=== PATIENT | female | born 1990 | race Hispanic/Latino ===

== ENCOUNTER 2017-03-03 06:10 | Emergency (ER) | payer MEDICAID ==
[2017-03-03 06:10] VITALS: BMI 38.6
[2017-03-03] MEDS ORDERED: DiphenhydrAMINE 50 mg/ml Inj ONE (06:20)
[2017-03-03] MEDS ORDERED: Sodium Chloride 0.9% 1,000 ML IV ONE ×2 (06:22→07:22)
--- NOTE | 2017-03-03 06:22 | C.PDOC ---
Addendum entered and electronically signed by Sandhya Gomez PA 03/03/17 11: 48: Addendum Addendum: 03/03/17 11:43 Pt was endorsed t o me by ELIA Dia. Pt was seen due to allergic reaction, treated with Solumedrol, Benadryl, Pepcid. During the ED evaluation, pt started to complain epigasric pain. Elia Dia order CT abd/pelvis. Pt was re-evaluated every hour, was cont c/o epigastric pain. Protonix, hydration with IVF order. Blood work review , mild leukocytosis noted, otherwise, no other acute abnormalities, electolytes LFT- WNL. UA results c/w UTI. UCx-pending. CT abd/pelvis results review at 11:43 and appears without acute apthology. Case discussed with ED attending and discharge with outpt f/u GI, Surgery recommend at this time. Results review and discused with pt. Understand and agrees with discharges. Original Note: History Of Present Illness <Karissa Ellis - Last Filed: 03/03/17 06:48> <Sandhya oGmez - Last Filed: 03/03/17 11:42> <Dia Phillip - Last Filed: 03/05/17 09:14> 26 year old female presents to the ED for evaluation of allergic reaction. She reports reaction may be from an unknown over the counter pain reliever. She states that she was having epigastric abdominal pain associated with nausea 2 days ago and took the unknown medication for that pain. The next day she developed rash and itchiness. She took a benadryl last night but rash and itching persisted over night and now she complains of pruritic lips. (Dia Phillip) <Karissa Ellis - Last Filed: 03/03/17 06:48> <Sandhya Gomez - Last Filed: 03/03/17 11:42> History Per: Patient History/Exam Limitations: no limitations Onset/Duration Of Symptoms: Days Current Symptoms Are (Timing): Still Present <Dia Phillip - Last Filed: 03/05/17 09:14> Time Seen by Provider: 03/03/17 06:30 Chief Complaint (Nursing): Allergic Reaction Past Medical History - Medical History PMH: Asthma Denies: Depression, Chronic Kidney Disease Family History: States: Unknown Family Hx - Social History Hx Tobacco Use: Yes (heavy smoker) Hx Alcohol Use: No Hx Substance Use: No (CANNABIS - used to) - Immunization History Hx Tetanus Toxoid Vaccination: Yes Hx Influenza Vaccination: No Hx Pneumococcal Vaccination: No <Karissa Ellis - Last Filed: 03/03/17 06:48> Reviewed: Historical Data, Nursing Documentation, Vital Signs Family History: States: Unknown Family Hx <Dia Phillip - Last Filed: 03/05/17 09:14> Vital Signs: Last Vital Signs Temp 98.1 F 03/03/17 12:04 Pulse 84 03/03/17 12:04 Resp 18 03/03/17 12:04 BP 135/79 03/03/17 12:04 Pulse Ox 98 03/03/17 12:04 - [facility] Procedures CLOSURE SKIN & SUBCUTANEOUS NEC (01/24/14) DRESSING OF WOUND NEC (07/11/13) INJECT/INFUSE ELECTROLYT (09/10/13) INJECT/INFUSE NEC (11/16/13) MAGNETIC RESONANCE IMAGING OF SPINAL CANAL (05/25/13) NEBULIZER THERAPY (11/16/13) VITAL CAPACITY DETERMIN (10/18/13) Review Of Systems Skin: Positive for: Rash, Other (Pruritis) <Dia Phillip - Last Filed: 03/05/17 09:14> Physical Exam - Physical Exam Appears: Non-toxic, No Acute Distress Skin: Normal Color, Warm, Dry, Rash (diffuse urticaria) Head: Atraumatic, Normacephalic Tongue: No Swelling Lips: Swelling (mild swelling to lower lip) Cardiovascular: Rhythm Regular (Rate Regular) Respiratory: Normal Breath Sounds, No Rales, No Rhonchi, No Wheezing Gastrointestinal/Abdominal: Normal Exam, Soft, No Tenderness Neurological/Psych: Oriented x3, Normal Speech <Dia Phillip - Last Filed: 03/05/17 09:14> ED Course And Treatment - Laboratory Results Result Diagrams: 03/03/17 06:29 <Karissa Ellis - Last Filed: 03/03/17 06:48> - Laboratory Results Result Diagrams: 03/03/17 06:29 03/03/17 06:29 <Dia Phillip - Last Filed: 03/05/17 09:14> Medical Decision Making <Karissa Ellis - Last Filed: 03/03/17 06:48> <Sandhya Gomez - Last Filed: 03/03/17 11:42> <Dia Phillip - Last Filed: 03/05/17 09:14> Medical Decision Making: Impression: urticaria Plan: * labs * IV NS, Pepcid, Benadryl, Solu-medrol Progress: Case signed out to ELIA Gomez pending labs, reeval and dispo (Karissa Ellis) Disposition - Disposition Disposition Time: 07:00 - POA Present On Arrival: None <Karissa Ellis - Last Filed: 03/03/17 06:48> <Sandhya Gomez - Last Filed: 03/03/17 11:42> <Dia Phillip - Last Filed: 03/05/17 09:14> - Disposition Referrals: Aydin Avelar MD [Medical Doctor] - Haroldo Arcos MD [Staff Provider] - Nabor Agosto MD [Staff Provider] - Disposition: HOME/ ROUTINE Condition: STABLE Additional Instructions: Encourage fluids Take medication as prescribed Follow up with PMD, GI and Surgery in 2-3 days for re-evaluation. Return to ED if any worsening or new changes. Prescriptions: DiphenhydrAMINE [Benadryl] 25 mg PO BID #10 cap Famotidine [Pepcid] 20 mg PO BID #10 tab Nitrofurantoin Macrocrystals [Macrobid] 1 cap PO BID #14 cap Prednisone [Deltasone] 40 mg PO DAILY #6 tablet Instructions: Umbilical Hernia (ED), Allergies (ED), Epigastric Pain (ED) Forms: [facility] (Mosotho), Work Excuse - Clinical Impression Clinical Impression: Allergic urticaria <Karissa Ellis - Last Filed: 03/03/17 06:48> <Sandhya Gomez - Last Filed: 03/03/17 11:42> - PA / SALESPERSON USED CARS / Resident Statement MD/DO has reviewed & agrees with the documentation as recorded. - Scribe Statement The provider has reviewed the documentation as recorded by the Scribe <iDa Phillip - Last Filed: 03/05/17 09:14> - Scribe Statement Jeff Saleh (Dia Phillip) Physician Patient Turnover Patient Signed Over To: Sandhya Gomez Handoff Comments: pending labs, reeval and dispo <Karissa Ellis - Last Filed: 03/03/17 06:48>
[2017-03-03] MEDS ORDERED: Sodium Chloride 0.9% 1,000 ML ONE ×2 (06:31→08:05)
[2017-03-03 06:32] VITALS: RESP 18
[2017-03-03] MEDS ORDERED: DiphenhydrAMINE 50 mg/ml Inj IVP STA (06:32)
[2017-03-03 06:36] LABS: BASO # 0.1 K/uL (0.0-0.2); BASO % 0.5 % (0.0-2.0); EOS # 0.3 K/uL (0.0-0.7); HEMATOCRIT 44.4 % (34.0-47.0); LYMPH # 4.5 K/uL (1.0-4.3); LYMPH % 35.2 % (20.0-40.0); MEAN CELL VOLUME 88.8 fL (81.0-99.0); MEAN CORPUSCULAR HEMOGLOBIN 29.8 pg (27.0-31.0); MEAN CORPUSCULAR HGB CONC 33.6 g/dL (33.0-37.0); MEAN PLATELET VOLUME 7.2 fL (7.2-11.7); MONO # 0.6 K/uL (0.0-0.8); MONO % 4.8 % (0.0-10.0); NRBC % 0.1 % (0.0-2.0); RED CELL DISTRIBUTION WIDTH 13.2 % (11.5-14.5); WHITE BLOOD COUNT 12.8 K/uL (4.8-10.8)
[2017-03-03 06:41] LABS: CHLORIDE 102 mmol/L (98-107)
[2017-03-03 06:42] LABS: POTASSIUM 4.1 mmol/L (3.6-5.2); SODIUM 137 mmol/L (132-148)
[2017-03-03 06:44] LABS: ALB/GLOB RATIO 1.2 (1.0-2.1); ALKALINE PHOSPHATASE 70 U/L (38-126); AST/SGOT 17 U/L (14-36); BILIRUBIN,TOTAL 0.4 mg/dL (0.2-1.3); CARBON DIOXIDE 23 mmol/L (22-30); GFR AFRICAN-AMERICAN > 60; TOTAL PROTEIN 7.3 g/dL (6.3-8.3)
[2017-03-03 06:45] LABS: ALT/SGPT 40 U/L (9-52); BLOOD UREA NITROGEN 10 mg/dL (7-17); CALCIUM 9.1 mg/dl (8.6-10.4); GLUCOSE,RANDOM 87 mg/dL (65-105)
[2017-03-03 08:37] LABS: RBC URINE 3 /hpf (0-3); URINE BACTERIA MANY (<OCC); URINE BILIRUBIN NEGATIVE (NEGATIVE); URINE BLOOD NEGATIVE (NEGATIVE); URINE COLOR Yellow (YELLOW); URINE GLUCOSE (UA) NORMAL (Normal); URINE KETONE NEGATIVE (NEGATIVE); URINE LEUKOCYTE ESTERASE TRACE Leu/uL (Negative); URINE PROTEIN NEGATIVE (NEGATIVE); URINE UROBILINOGEN NORMAL mg/dL (0.2-1.0); WBC URINE 15 /hpf (0-5)
[2017-03-03] MEDS ORDERED: Iodixanol 320 MG/ML 100 ML BOTTLE IV ONE (10:07)
--- NOTE | 2017-03-03 11:28 | CT ---
PROCEDURE: CT Abdomen and Pelvis with contrast HISTORY: abd pain periumbilical COMPARISON: None available. TECHNIQUE: Contrast dose: 100 cc Visipaque 320 Radiation dose: Total exam DLP = 1191.29 MGy-cm. This CT exam was performed using one or more of the following dose reduction techniques: Automated exposure control, adjustment of the mA and/or kV according to patient size, and/or use of iterative reconstruction technique. FINDINGS: LOWER THORAX: No visible consolidation, pleural effusion, or pneumothorax. Small hiatal hernia. LIVER: Hypoattenuation of the liver compatible with hepatic steatosis. GALLBLADDER AND BILE DUCTS: Unremarkable. PANCREAS: Unremarkable. SPLEEN: Unremarkable. ADRENALS: Unremarkable. KIDNEYS AND URETERS: The kidneys enhance symmetrically. No hydronephrosis or obstructing calculus identified. VASCULATURE: No aortic aneurysm. BOWEL: Stomach is nondistended. Lack of oral contrast limits evaluation for bowel pathology. Bowel loops appear within normal limits of caliber without evidence of obstruction. APPENDIX: The appendix appears within normal limits of caliber. No secondary signs of acute appendicitis. PERITONEUM: Small pelvic free fluid. No free air. LYMPH NODES: 8 mm gastrohepatic lymph node, nonspecific. No bulky adenopathy identified. BLADDER: Unremarkable. REPRODUCTIVE: The uterus is present. BONES: No acute osseous abnormality is detected. OTHER FINDINGS: Tiny fat containing umbilical hernia. IMPRESSION: Hypoattenuation of the liver compatible with hepatic steatosis. Small pelvic free. Tiny fat containing umbilical hernia.
[2017-03-03 12:05] VITALS: BP 135/79; PULSE 84; TEMP 98.1; O2SAT 98
== END 2017-03-03 12:26 | disposition home or self-care (01) ==
LOC: C.ER 06:10
DX: L50.0 Allergic urticaria (principal); Z87.891 Personal history of nicotine dependence
CPT/HCPCS: 74177; 80053; 81001; 83690; 84703; 85025; 87086; 96361; 96374; 96375; 99285; C9113; J1200; J1885; J2930; J7040; Q9967